=== PATIENT | male | born 1965 | race Caucasian/White ===

== ENCOUNTER 2022-11-21 17:33 | Emergency (ER) | payer SELFPAY ==
[2022-11-21 17:33] VITALS: BP 142/87; PULSE 101; RESP 18; O2SAT 98
[2022-11-21 17:44] VITALS: PULSE 101
--- NOTE | 2022-11-21 18:01 | PC.NURSE ---
pt witnessed walking out the back doors to ED with steady gait, no IV documented.
== END 2022-11-21 18:01 | disposition left against medical advice (07) ==
LOC: ANHED 18:29
DX: R56.9 Unspecified convulsions (principal)
CPT/HCPCS: 99199